=== PATIENT | female | born 1960 ===

== ENCOUNTER → 2023-01-25 | Outpatient (CLI) | payer OTHER | END | disposition home or self-care (01) | LOC: CARD 01:30 | PROVIDERS: ATTEND Internal Medicine Cardiovascular Disease | DX: R06.09 Other forms of dyspnea (principal) ==

== ENCOUNTER → 2024-10-05 | Outpatient (CLI) | payer OTHER, MEDICAID ==
[~2024-10-05] MED LIST: ASPIRIN ADULT L81 M2 PO; ATORVASTATIN CA80 M1 PO; B-12500 MC1 PO; CLARITIN10 MG PO; DULERA 50 MCG-513 GM INH; EPINEPHRINE IJ; EYE ALLERGY ITCH5 ML OP; IRON240 MG PO; NYSTATIN CREAM15 GM T; OXYGEN NAS; PREDNISONE10 MG PO; PROTONIX20 MG PO; SINGULAIR10 M1 PO; SPIRIVA18 MCG PO; VENT7GM INH; VENTOLIN 02.5 MG/3 M INH; VITAMIN D250 MC1 PO
== END | disposition home or self-care (01) ==
LOC: US 01:44
PROVIDERS: ATTEND Internal Medicine Cardiovascular Disease
DX: R00.2 Palpitations (principal); Z99.81 Dependence on supplemental oxygen